=== PATIENT | female | born 1985 | race Two or more races ===

== ENCOUNTER 2024-09-16 12:06 | Emergency (ER) | payer MEDICAID, SELFPAY ==
--- NOTE | 2024-09-16 12:08 | ED_ITS ---
HPI - Back Pain/Injury General Chief Complaint: General Medical Stated Complaint: back pain Time Seen by Provider: 09/16/24 18:49 Source: patient Limitations: language barrier History of Present Illness ED Provider: Shannan Pryor PA-C HPI Narrative: 39-year-old female with a history of morbid obesity presents with multiple complaints. Patient states she has been having left-sided low back pain with radiation into the hip for a week. Pain worse with movement and sitting down. Patient denies new exercise or heavy lifting that could have precipitated her symptoms. No change in bowel habits, no urinary symptoms, no paresthesia or weakness of lower extremities. Patient also complains of left breast pain x1 week. No swelling, erythema, warmth or irregular discharge from the nipple. The patient is currently breast-feeding, she only feeds her child's from the left breast. No fever. Related Data Previous Rx's ?Medication ?Instructions ?Recorded acetaminophen 500 mg tablet 1,000 mg (2 x 500 mg) PO Q8H PRN 09/16/24 (Acetaminophen Pain Relief) fever or pain #30 tabs Allergies Allergy/AdvReac Type Severity Reaction Status Date / Time No Known Allergies Allergy Verified 09/16/24 12:14 Review of Systems 2 Review of Systems: Yes all other systems are reviewed and are negative Constitutional: Constitutional: Denies fatigue and Denies fever(s) Cardiovascular: Cardiovascular: Denies chest pain and Denies dyspnea Respiratory: Respiratory: Denies cough and Denies dyspnea Gastrointestinal: Gastrointestinal: Denies abdominal pain, Denies nausea and Denies vomiting Musculoskeletal: Musculoskeletal: Reports back pain, Denies muscle weakness, Denies numbness and Reports radiating pain into limb Neurologic: Denies numbness Endocrine: Endocrine: Denies fatigue [facility] Past Medical History Attestation statement: The following information was validated with the patient. Social History Social History Advance Directives: No Advance Directives Information Provided: No Do you have a plan to hurt others: No Plan Physical Exam 2 Vital Signs: Vital Signs: Last Vital Signs Temp 96.9 F 09/16/24 18:37 Pulse 92 09/16/24 18:37 Resp 18 09/16/24 18:37 BP 145/89 H 09/16/24 18:37 Pulse Ox 99 09/16/24 18:37 O2 Del Method Room Air 09/16/24 18:37 BMI result Body Mass Index 29.4 Const: Other: Alert well-appearing Orientation/consciousness: patient oriented x3 Chest: Other: The left breast is without erythema, warmth no palpable masses, there was milk with dripping from the breasts, no additional discharge Resp: Effort & Inspection: normal respiratory effort Cardio: Other: Normal peripheral perfusion Skin: Other: Warm dry no rash Neuro: General: patient oriented x3, gait normal, no focal motor deficits and CN's II-XI intact bilaterally Psych: Other: Calm cooperative Course Course Course Narrative: This is a Rapid Medical Exam performed in triage by Carolee Sosa PA-C. Full HPI, ROS and PE to be performed by primary ED provider. 39-year-old Telugu-speaking female presenting to the ED c/o left sided low back pain x8 days w/radiation down LLE. Also reports L breast pain x1 wk - is currently breast-feeding. denies known injury/trauma/fall, nipple discharge/skin changes, fever, chills PE: ambulating w/steady gait, breast area not evaluated in triage - eval by main provider Plan: labs Medications Administered Discontinued Medications Generic Name Dose Route Start Last Admin Trade Name Freq PRN Reason Stop Dose Admin Acetaminophen 975 mg 09/16/24 18:49 09/16/24 19:29 Acetaminophen 325 Mg Tablet PO 09/16/24 18:50 975 mg ONCE ONE Administration Medical Decision Making Medical Decision Making [facility] Narrative: 39-year-old female with a history of morbid obesity presents with multiple complaints. Patient states she has been having left-sided low back pain with radiation into the hip for a week. Pain worse with movement and sitting down. Patient denies new exercise or heavy lifting that could have precipitated her symptoms. No change in bowel habits, no urinary symptoms, no paresthesia or weakness of lower extremities. Patient also complains of left breast pain x1 week. No swelling, erythema, warmth or irregular discharge from the nipple. The patient is currently breast-feeding, she only feeds her child's from the left breast. No fever. Problem: Obesity History: Per patient I have considered the following differential diagnoses: Lumbar strain, lumbar radiculopathy, cauda equina, mastitis, abscess, Plan: In regard to the breasts, she has a completely normal exam, she likely has discomfort from lactating. In regard to the back pain, she is having some degree radicular symptoms, we will be treating with Tylenol. She has no red flag signs symptoms concerning for cord compression. Lab Data 09/16/24 14:37 09/16/24 14:37 Labs: Lab Results 09/16/24 Range/Units 14:37 WBC 6.7 (4.8-10.8) X10*3/uL RBC 5.02 (4.20-5.50) X10*6/uL Hgb 12.8 (12.0-16.0) g/dl Hct 39.7 (37.0-47.0) % MCV 79.1 L (80.0-98.0) fL MCH 25.5 L (27.0-33.0) pg MCHC 32.2 (31.0-35.0) g/dl RDW 14.7 (11.0-16.0) % Plt Count 268 (160-400) X10*3/uL MPV 9.7 (9.4-12.3) fL Immature Gran % (Auto) 0.3 (0.0-0.4) % Neut % (Auto) 57.1 (45-73) % Lymph % (Auto) 33.4 (20-40) % [place] % (Auto) 5.2 (2-11) % Eos % (Auto) 3.3 (0-4) % Baso % (Auto) 0.7 (0-2) % Lymph # (Auto) 2.2 (1.2-4.9) X10*3/uL [place] # (Auto) 0.4 (0.1-1.2) X10*3/uL Eos # (Auto) 0.2 (0.0-0.4) X10*3/uL Baso # (Auto) 0.1 (0.0-0.2) X10*3/uL Abs Immat Gran (auto) 0.02 (0.00-0.03) X10*3/uL Absolute Neuts (auto) 3.8 (2.0-8.3) x10*3/uL Absolute Nucleated RBC 0.000 (0.0-0.012) X10*3/uL Nucleated RBC % (auto) 0.0 (0.0-0.2) /100WBC Sodium 140 (135-145) mmol/L Potassium 4.4 (3.3-5.1) mmol/L Chloride 109 H (96-108) mmol/L Carbon Dioxide 24 (22-29) mmol/L Anion Gap 11 L (12-20) BUN 9 (9-16) mg/dL Creatinine 0.58 (0.5-1.4) mg/dL Estim Creat Clear Calc 195.4 Estimated GFR > 60 Random Glucose 91 (60-115) mg/dL Calcium 9.3 (8.4-10.2) mg/dL Discharge Plan Discharge Clinical Impression: Pain of breast during , Low back pain Patient Disposition: Home, Self-Care Instructions: and Nipple Soreness (ED), Acute Low Back Pain (ED) Additional Instructions: The exam of the breasts was unremarkable, there was no evidence of infection. It is normal to have pain in the breasts while breast-feeding. See home care instructions. In regard to your back pain, you are being treated for low back strain/pain. Use the Tylenol as needed for pain. Continue to follow up with your healthcare providers. Prescriptions: New acetaminophen [Acetaminophen Pain Relief] 500 mg tablet 1,000 mg PO Q8H PRN (Reason: fever or pain) Qty: 30 0RF Print Language: Divehi
[2024-09-16 12:11] VITALS: BP 147/94; PULSE 109; RESP 18; TEMP 36.3; O2SAT 98; BMI 29.4
--- NOTE | 2024-09-16 13:28 | MHC.EDTECH ---
Called patient from waiting room for blood work in triage, no reply at this time.
--- NOTE | 2024-09-16 13:37 | MHC.EDTECH ---
Addendum entered by Barbara Livingston 09/16/24 13:51: Second attempt to call patient Original Note: Called patient from waiting room to draw blood work in triage, no reply at this time.
[2024-09-16 14:42] LABS: MANUAL DIFF FLAG NO
[2024-09-16 14:46] LABS: Basophils Absolute Auto 0.1 X10*3/uL (0.0-0.2); Basophils Percent Auto 0.7 % (0-2); Eosinophils Absolute Auto 0.2 X10*3/uL (0.0-0.4); Eosinophils Percent Auto 3.3 % (0-4); Hematocrit 39.7 % (37.0-47.0); Hemoglobin 12.8 g/dl (12.0-16.0); Imm Gran Abs Auto 0.02 X10*3/uL (0.00-0.03); Imm Gran Pct Auto 0.3 % (0.0-0.4); Lymphocytes Absolute Auto 2.2 X10*3/uL (1.2-4.9); Lymphocytes Percent Auto 33.4 % (20-40); Mean Corpuscular HGB Conc 32.2 g/dl (31.0-35.0); Mean Corpuscular Hemoglobin 25.5 pg (27.0-33.0); Mean Corpuscular Volume 79.1 fL (80.0-98.0); Mean Platelet Volume 9.7 fL (9.4-12.3); Monocytes Absolute Auto 0.4 X10*3/uL (0.1-1.2); Monocytes Percent Auto 5.2 % (2-11); Neutrophils Absolute Auto 3.8 x10*3/uL (2.0-8.3); Neutrophils Percent Auto 57.1 % (45-73); Platelet Count 268 X10*3/uL (160-400); Red Blood Count 5.02 X10*6/uL (4.20-5.50); Red Cell Distribution Width 14.7 % (11.0-16.0); White Blood Count 6.7 X10*3/uL (4.8-10.8)
[2024-09-16 14:56] LABS: Anion Gap 11 (12-20); Blood Urea Nitrogen 9 mg/dL (9-16); Calcium 9.3 mg/dL (8.4-10.2); Carbon Dioxide 24 mmol/L (22-29); Chloride 109 mmol/L (96-108); Creatinine Clr Calc Pharmacy 195.4; Estimated Glomerular Filt Rate > 60; Glucose Random 91 mg/dL (60-115); Potassium 4.4 mmol/L (3.3-5.1); Sodium 140 mmol/L (135-145)
[2024-09-16 18:37] VITALS: BP 145/89; PULSE 92; RESP 18; TEMP 36.1; O2SAT 99
[2024-09-16] MEDS: Acetaminophen 325 MG TABLET 975 MG PO (19:29)
--- NOTE | 2024-09-16 19:29 | PC.NURSE ---
pt medicated per provider order. effectiveness pending. plan of care ongoing.
[2024-09-16 20:12] VITALS: BP 145/89; PULSE 92; RESP 18; TEMP 36.1; O2SAT 99
== END 2024-09-16 20:12 | disposition home or self-care (01) ==
PROVIDERS: Physician Assistant; Emergency Provider Emergency Medicine
DX: O91.22 Nonpurulent mastitis associated with the puerperium (principal); M54.50 Low back pain, unspecified
CPT/HCPCS: 36415; 80048; 85025; 99283